=== PATIENT | female | born 1985 | race Caucasian/White ===

== ENCOUNTER → 2018-02-26 09:12 | Outpatient (CLI) | payer SELFPAY | PROVIDERS: Family Provider Family Medicine; PCP Family Medicine; Visit Provider Nurse Practitioner Adult Health | DX: N20.0 Calculus of kidney (principal) | CPT/HCPCS: 74018 ==

== ENCOUNTER 2018-03-20 11:45 | Day surgery (SDC) | payer SELFPAY ==
--- NOTE | 2018-03-20 11:30 | RAD_ITS ---
STUDY: X-RAY - ABDOMEN/PELVIS REASON FOR EXAM: Female, 33 years old. Right-sided stones, pre surgery TECHNIQUE: Two AP supine views of the abdomen and pelvis. COMPARISON: 02/26/2018 FINDINGS: Normal visualized lung bases. There is an unremarkable bowel gas pattern. There is no demonstrated free abdominal air. The visualized liver, spleen and kidneys are grossly normal in size and morphology. There is a small calcific density in the lower right pelvic region measuring 4.7 mm Normal soft tissue structures. Normal visualized osseous structures. RAD/Abdomen Single View IMPRESSION: Calcific density in the lower right pelvic region measuring 4.7 mm Electronically Signed: Sergey Marcial DO at 12:08 EDT Tel , Service support ,
[2018-03-20 12:24] LABS: Internal QC Validated? YES +Cl - CLEAR BKGD; Pregnancy, Urine Negative Negative
[2018-03-20 12:34] VITALS: BP 128/67; PULSE 115; RESP 18; TEMP 37.2; O2SAT 99; BMI 49.5
[2018-03-20] MEDS: Cefazolin 2 GM in 0.9% Normal Saline 100 ML IV (14:22)
--- NOTE | 2018-03-20 15:08 | DCINST_ITS ---
Discharge Diet: No Restrictions Discharge Activity: Return to Normal Activity, May Not Drive - for 2 days. Additional Activity Instructions:: Please be aware that pain medications may cause nausea. You should typically eat light foods as you take your pain medication. Pain medication may cause constipation, if this is a problem for you, please discuss with your doctor. Allergies/Adverse Reactions: Allergies strawberry Adverse Reaction (Verified 03/13/18 13:28) Nausea/Vom/Diarrhea Medications to take at Discharge Amoxicillin/Potassium Clav [Augmentin 875-125 Tablet] 1 each PO BID 03/13/18 Neomycin/Polymyxin B/Hydrocort [Gwyqbkno-Jddimpsjr-Gk Ear Susp] 4 drop LEFT EAR 4X/DAY 03/13/18 Primary Care Physician: Paola Ovalle PA-C [Primary Care Provider] - Test Results: Test results from this visit will be discussed in further detail at your follow- up appointment, if applicable. Please Follow Up With: Lawrence Nolasco MD When: in 2 weeks, please call to make an appointment.
--- NOTE | 2018-03-20 15:11 | OP.PCM_ITS ---
Report of Operation Date of Procedure: 03/20/18 Pre-Operative Diagnosis: Right ureteral calculi Post-Operative Diagnosis: Same Surgery/Procedure Performed:: Right extracorporeal shockwave lithotripsy Description of Surgical Findings:: 33-year-old female taken back to the operating room after smooth induction of general anesthesia she was placed supine on the table we then localize the stone in the distal ureter on the right side seen on x-ray and we could see this clearly on fluoroscopy the stone was put in the F2 focal point of the machine we then delivered 3000 shockwaves to the [place] are monitoring the stone adjusting the the the shockwaves first we went up on the power then we went down and then finally we increased the rate from 90-120 give a total of 3000 shockwaves at the end the treatment site. The stone broke up really nicely decided not to leave a stent in patient's anesthetic was reversed she is taken back to PACU good condition she will follow-up in a few weeks with an x-ray that should end of dictation on Type of Anesthesia:: General Drains: none - Admit VTE Documentation VTE Present on Admission: No VTE Mechan Device Prophylaxis: SCD's VTE Pharm Prophylaxis ordered?: No
[2018-03-20 15:13] VITALS: BP 114/69; BP 128/67; PULSE 111; RESP 16; TEMP 36.7; O2SAT 93
[2018-03-20 15:15] VITALS: BP 118/76; BP 128/67; PULSE 114; RESP 94; O2SAT 95
[2018-03-20 15:30] VITALS: BP 123/76; BP 128/67; PULSE 112; RESP 16; O2SAT 95
[2018-03-20 15:40] VITALS: BP 122/86; BP 128/67; PULSE 110; RESP 16; TEMP 36.4; O2SAT 95
[2018-03-20 16:24] VITALS: BP 128/67
== END 2018-03-20 16:25 | disposition home or self-care (01) ==
LOC: SDC 11:48 → AC 11:49
PROVIDERS: Family Provider Family Medicine; PCP Family Medicine; Visit Provider Urology
PROC: (CPT 50590; principal; 2018-03-20 13:35)
DX: N20.1 Calculus of ureter (principal)
CPT/HCPCS: 50590; 74018; 81025; J7120; J2405

== ENCOUNTER → 2018-04-09 14:40 | Outpatient (CLI) | payer SELFPAY ==
--- NOTE | 2018-04-09 14:50 | RAD_ITS ---
STUDY: X-RAY - ABDOMEN/PELVIS REASON FOR EXAM: Female, 33 years old. Follow-up right kidney stones. Surgery 03/20/2018. TECHNIQUE: AP supine view. COMPARISON: None. FINDINGS: Normal visualized lung bases. There is an unremarkable bowel gas pattern. There is no demonstrated free abdominal air. The visualized liver, spleen and kidneys are grossly normal in size and morphology. Normal soft tissue structures. Normal visualized osseous structures. RAD/Abdomen Single View IMPRESSION: 1. Normal x-ray examination of the abdomen and pelvis. 2. Interval clearing of the faint calcific density in the right side of the pelvis when compared to 03/20/2018. Electronically Signed: Johnny Bravo MD at 14:24 EDT , Service support ,
[2018-04-19 20:07] LABS: Ca Oxalate, Monohydrate 88 % (.); Calcium Phosphate 10 % (.)
== END ==
PROVIDERS: Family Provider Family Medicine; PCP Family Medicine; Referring Provider Urology; Visit Provider Urology
DX: N20.0 Calculus of kidney (principal)
CPT/HCPCS: 74018; 82360

== ENCOUNTER 2018-08-05 23:47 | Emergency (ER) | payer SELFPAY ==
[2018-08-05 23:48] VITALS: BP 157/94; PULSE 112; RESP 18; TEMP 36.4; O2SAT 97; BMI 52.2
--- NOTE | 2018-08-06 00:05 | ED.VISSUMM ---
- ER Visit Summary Date of Service: 08/06/18 Chief Complaint: [] Here for a rabies shot History of Present Illness: The patient is a 33 F it was bit by a stray cat earlier today. Happened suddenly. She got bit just proximal to her second knuckle. She washed it. She went over to [facility] and they gave her a tetanus shot and started her on Augmentin out of the emergency department. They sent her here to potentially start rabies vaccinations. She denies any complaints. Physical Examination: [] Vital signs reviewed General: Well-nourished well-developed Head: Normocephalic atraumatic Eyes: Pupils equal round and reactive to light extraocular movements intact ENT: TMs clear no hemotympanum no trauma Neck: Nontender full range of motion Cardiovascular: Regular rate rhythm no murmurs normal S1-S2 Respiratory: No distress clear to auscultation bilaterally chest nontender Abdomen: Soft nontender nondistended normal bowel sounds no masses Back: Nontender no CVA tenderness Extremities: Nontender active range of motion ?4 extremities no trauma. 1 mm superficial bite wound to the second finger just proximal to the knuckle. It is not deep. There is no swelling redness or deformity Skin: see above Neuro alert oriented cranial nerves II through XII intact normal strength sensation reflexes Test Results: [] Emergency Department Course and Treatment: [] At this time the patient was reassured. We do not need to do rabies prophylaxis for just a stray cat bite. She will continue to keep it clean use her antibiotic and Neosporin. I do not feel it needs to be opened up. This is very superficial she understands that if it starts to get red or infected she needs to return. Treatment Plan: [] Disposition: [] Impression: []cat Bite hand This note was generated with [employer] dictation software. It may contain incorrect words, spelling, and punctuation that were not noted in review of the chart prior to signing ED Disposition - Plan for ED Patient: Referrals: Paola Ovalle PA-C [Primary Care Provider] -
--- NOTE | 2018-08-06 00:07 | ED.DEP ---
ED Disposition - Plan for ED Patient: Disposition: Home or Assisted Living Instructions: ED Bite Cat Referrals: Paola Ovalle PA-C [Primary Care Provider] -
--- NOTE | 2018-08-06 00:18 | ED.RN ---
PT GIVEN WRITTEN DISCHARGE INSTRUCTIONS. PT GIVEN SHUR CLENS SOAP AND EDUCATED ON SOAKING BITE AT HOME. PT VERBALIZES UNDERSTANDING, REQUESTS TO TAKE SOAK HOME INSTEAD OF REMAINING IN ED. PT DENIES ANY FURTHER QUESTIONS. AMBULATES OUT OF DEPT WITH FAMILY. EDUCATED TO RETURN FOR NEW OR WORSENED CONDITION.
== END 2018-08-06 00:19 | disposition home or self-care (01) ==
LOC: ED 08-06 00:11
PROVIDERS: Emergency Provider Emergency Medicine; Family Provider Family Medicine; PCP Family Medicine
DX: S60.579A Other superficial bite of hand of unspecified hand, initial encounter (principal); W55.01XA Bitten by cat, initial encounter; Y93.9 Activity, unspecified; Y92.9 Unspecified place or not applicable
CPT/HCPCS: 99282

== ENCOUNTER 2020-10-29 15:48 | Emergency (ER) | payer OTHER, SELFPAY ==
[2020-10-29 15:49] VITALS: BP 145/83; PULSE 125; RESP 20; TEMP 36.8; O2SAT 96; BMI 50.3
--- NOTE | 2020-10-29 16:55 | EDS_ITS ---
HPI HPI - URI History of Present Illness Chief Complaint: Cough Informant: patient Onset/Context/Timing Onset: Days (5) Context: Gradual Onset Timing: Continuous Quality: achy, feeling poorly Location: generalized Current Severity: Moderate Maximum Severity: Moderate Worsened by: - (nothing) Associated Symptoms Associated Symptoms: Nasal Congestion, Headache, Myalgias, Nausea, Vomiting, Diarrhea, Shortness of Breath and Nonproductive cough Narrative Narrative: Patient is healthy 35-year-old female, her recently diagnosed with Covid, she lives with them and started having similar symptoms including loss of taste and smell 5 days ago. She had a virtual visit with her doctor who advised her to isolate herself as she presumably has COVID-19, and advised her t o come to the hospital if she has trouble controlling her fevers, which she has. She has been taking Tylenol and ibuprofen alternating, so she is taking something every 3 or 4 hours. She denies any dyspnea. She has some soreness in her chest from all the coughing but no angina or unilateral pleuritic internal thoracic pains. Furthermore, she has been checking her pulse oximetry at home and it has not gone below 95-96% on room air. ROS [facility] ED Constitutional Constitutional ED: Reports chills, fever(s) and malaise Eyes Eyes: Denies change in vision or diplopia ENT ENT ED: Denies rhinorrhea or sore throat Cardiovascular Cardiovascular: Denies chest pain or palpitations Respiratory/Chest Respiratory/Chest: Reports cough; Denies dyspnea, dyspnea on exertion or sputum Gastrointestinal Gastrointestinal: Reports diarrhea, nausea and vomiting; Denies abdominal pain Genitourinary Genitourinary ED: Denies dysuria or hematuria Musculoskeletal Musculoskeletal: Reports myalgias; Denies back pain or neck pain Integumentary Denies abscess or rash Neurologic Neurologic: Reports headache(s); Denies paresthesias or weakness Psychiatric Psychiatric: Denies anxiety or suicidal thoughts [facility] Medical History (Updated 10/29/20 @ 18:[address] Ronald Adhikari MD) Kidney stones Home Medications ondansetron HCl [Zofran] 8 mg PO Q8H PRN #20 tab 10/29/20 [Rx Last Taken Unknown] Allergy/AdvReac Type Severity Reaction Status Date / Time strawberry AdvReac Nausea/Vom/ Verified 10/29/20 15:52 Diarrhea Social History Smoking Status: Never smoker EXAM Physical Exam Const Vital Signs: 10/29/20 15:49 10/29/20 17:26 Temperature 98.2 F Temperature Source Temporal Pulse Rate 125 H Respiratory Rate 20 H Respiratory Effort Normal Non-Labored Respiratory Depth Normal Respiratory Pattern Normal Blood Pressure 145/83 H Blood Pressure Mean 103 Pulse Ox 96 Oxygen Delivery Method Room Air Room Air Positive well nourished, well developed and obese General Appearance ED: well developed and NAD Nutritional Appearance: obese HEENT Reports moist mucous membranes normocephalic and atraumatic Eyes PERRL and EOMs intact bilaterally Neck full ROM and supple Resp normal respiratory effort and clear to auscultation bilaterally Cardio regular rate, regular rhythm and no murmurs GI non-tender and non-distended Auscultation: normoactive bowel sounds Palpation: soft Back/Spine no CVA tenderness General Back: other FROM Extremity normal to inspection General Extremety ED: Negative for edema, pulses abnormal or tenderness General Extremity: Negative for edema or pulses abnormal Neuro oriented x3, CN's II-XII intact bilaterally and no sensory deficits noted Sensorium / Orientation: awake and alert Motor Exam: strength 5/5 throughout Skin no rashes or lesions noted and no wounds MDM MDM MDM Narrative Medical decision making narrative: Rapid Covid is positive, confirming that she does indeed have COVID-19. Her vital signs are stable, her tachycardia improved with a liter of IV fluids and she was also given Zofran and Toradol which helped. She is stable for discharge home and currently meets no criteria for admission. Given her BMI only, she is a potential candidate for monoclonal anti body infusion. She is discharged home with a prescription for Zofran and referred to the outpatient referral line for the monoclonal antibody infusion. Discharge Plan Triage Chief Complaint: Cough ED Provider: Ronald Adhikari Dx/Rx/DC Orders Clinical Impression: COVID-19 Instructions: Coronavirus Disease 2019 (COVID-19): Overview Prescriptions: New ondansetron HCl [Zofran] 4 mg tablet 8 mg PO Q8H PRN (Reason: nausea and vomiting) Qty: 20 RF: 0 Primary Care Provider: Paola Ovalle Referrals: Paola Ovalle PA-C [Primary Care Provider] - Activity Restrictions/Additional Instructions: You have been referred to the monoclonal antibody infusion line. You will get a call if you are a candidate for this. Continue to watch her pulse oximetry. If you drop below 90% return to the hospital. Disposition Disposition: Home, self care
[2020-10-29] MEDS: 0.9% Normal Saline 1,000 ML 999 ML IV (17:20)
[2020-10-29] MEDS: Ondansetron 4 MG/2 ML Vial IV (17:20)
[2020-10-29] MEDS: Ketorolac 15 MG/ML Vial IV (17:20)
[2020-10-29 17:26] VITALS: O2SAT 98
[2020-10-29 18:59] VITALS: BP 133/71; PULSE 100; RESP 19; O2SAT 99
== END 2020-10-29 19:00 | disposition home or self-care (01) ==
PROVIDERS: Emergency Provider Emergency Medicine; PCP Family Medicine
DX: U07.1 COVID-19 (principal); E66.9 Obesity, unspecified; Z68.43 Body mass index [BMI] 50.0-59.9, adult
CPT/HCPCS: 87426; 96361; 96374; 96375; 99283; J7030; J2405

== ENCOUNTER 2024-05-23 13:21 | Day surgery (SDC) | payer OTHER, SELFPAY ==
[2024-05-23] VITALS (9 sets, daily range): BP systolic 141–154; BP diastolic 96–106; PULSE 90–106; RESP 15–16; TEMP 36.2–37; O2SAT 91–99; BMI 48.4
--- NOTE | 2024-05-23 13:33 | PRE.ANES_ITS ---
ASA Classification* ASA Classification ASA Classification: 2 Assessment & Plan Anesthesia* Anesthesia Assessment Anesthesia Assessment: Discussed sedation and/or anesthesia options, risks, benefits, and alternatives with patient/parents/legal guardian/POA. Questions invited. The patient/parents/legal guardian/POA seems to understand and agrees to proceed with anesthesia plan. Reviewed the physical assessment, medical history, allergy history and patient home medications list prior to surgery/procedure/anesthetic and documented any changes. Performed airway and anesthesia risk assessments. 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 When Was Last Pacemaker Check QUESTION #4 FULL TEXT: You/Your Family Experience fever (hyperthermia) with Anesthesia Last Oral Intake Last Oral intake: Last Oral Intake NPO since Meds taken in AM with sips of water? Meds patient instructed to take am of surgery PONV PONV - statistical financial analyst: PONV - statistical financial analyst Female Yes 05/21/24 08:33 HX of Motion Sickness Yes 05/21/24 08:33 HX of N/V After Surgery No 05/21/24 08:33 Non-Smoker Yes 05/21/24 08:33 Duration of Surgery greater Yes 05/21/24 08:33 than 60 minutes Number of Risk Factors 4 05/21/24 08:33 PONV Score Severe Risk 05/21/24 08:33 Height & Weight Height & Weight: Anesthesia: Height & Weight Height 5 ft 2 in 10/29/20 15:49 Respiratory Assessment Respiratory Assessment - statistical financial analyst: Respiratory Tract Infection Hx - statistical financial analyst Hx Respiratory Tract Infection No 05/21/24 08:33 STOP Sleep Apnea STOP Sleep Apnea - statistical financial analyst: STOP Sleep Apnea - statistical financial analyst Hx Hypertension No 05/21/24 08:33 Hx Sleep Apnea No 05/21/24 08:33 CPAP BIPAP Do you snore loudly (louder Yes 05/21/24 08:33 than talking or can be heard Do you often feel tired/ No 05/21/24 08:33 fatigued/ sleepy during daytime? Has anyone observed you stop No 05/21/24 08:33 breathing during sleep? STOP Results Negative 05/21/24 08:33 QUESTION #5 FULL TEXT : Do you snore loudly (louder than talking or can be heard through closed doors)? 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 Specify any problems Hx of Preganancy in last 3 No 05/21/24 08:33 Months Nurse Filling Out Transfusion DSCHRIBER 05/21/24 08:33 & Questions: Date: 05/21/24 05/21/24 08:33 Time: 08:34 05/21/24 08:33 Patient unable to answer at this time (ie. confused, unrespo /Reproduction History /Reproductive History - statistical financial analyst: /Reproductive Hx- statistical financial analyst Hx Now No 05/21/24 08:33 Gestational Age (in weeks): EDC: Hx Hx Para Hx Section SAB No 05/21/24 08:33 Active Medications Active Medications: Current Medications Generic Name Dose Route Start Last Admin Trade Name Freq PRN Reason Stop Dose Admin Cefazolin Sodium 2 gm/ N/A 20 mls @ 400 mls/hr 05/23/24 15:30 IV 05/23/24 15:32 PREOP ONE Lactated Ringer's 1,000 mls @ 15 mls/hr 05/23/24 13:30 IV 05/29/24 02:49 .Q48H [facility] Protocol PFSH Medical History Wears contact lenses Alcohol use Low iron Migraine headache Non-smoker Home Medications ?Medication ?Instructions ?Recorded ?Last Taken ?Type ondansetron HCl 4 mg tablet 8 mg (2 x 4 mg) PO Q8H PRN nausea 10/29/20 Unknown Rx (Zofran) and vomiting #20 tabs fluconazole 200 mg tablet 200 mg PO DAILY 05/21/24 Unknown History oxycodone-acetaminophen 5 mg-325 1 tab PO Q6H PRN PRN pain 05/21/24 Unknown History mg tablet sulfamethoxazole 800 1 tab PO BID 05/21/24 Unknown History mg-trimethoprim 160 mg tablet tamsulosin 0.4 mg capsule 0.4 mg PO QHS 05/21/24 Unknown History Allergy/AdvReac Type Severity Reaction Status Date / Time strawberry AdvReac Nausea/Vom/ Verified 05/21/24 08:30 Diarrhea Surgical History Hx of cystoscopy Social History Smoking Status: Never smoker Review of Systems (Anesthesia) ROS Narrative System reviewed and no additional complaints, except as documented.
--- NOTE | 2024-05-23 13:35 | RAD_ITS ---
STUDY: X-RAY - ABDOMEN/PELVIS REASON FOR EXAM: Female, 39 years old. RIGHT KIDNEY STONE TECHNIQUE: Single AP view of the abdomen / pelvis. COMPARISON: April 09, 2018 FINDINGS: Normal visualized lung bases. There is an unremarkable bowel gas pattern. Increased stool in the colon. Possible new 3 mm radiodensity to the right of L3. The visualized liver, spleen and kidneys are grossly normal in size and morphology. Normal soft tissue structures. Normal visualized osseous structures. RAD/Abdomen Single View IMPRESSION: Increased stool. Possible new 3 to 4 mm right mid ureterolith. Electronically Signed: Chidi Grover MD at 14:20 EST ,
[2024-05-23 14:05] LABS: Internal QC Validated? YES +Cl - CLEAR BKGD
[2024-05-23 14:06] LABS: Pregnancy, Urine Negative Negative
[2024-05-23] MEDS: Lactated Ringers 1,000 ML 15 ML IV (14:09)
--- NOTE | 2024-05-23 15:28 | PCM.HP.STD ---
HPI - General General Date of Service: 05/23/24 Chief Complaint: Right kidney stone HPI Narrative KILLIANBORA ROLDAN, is a 39 F who presents for treatment of a right kidney stone with shockwave lithotripsy patient is send it is possible I may need to put a stent on the right side. PFSH Medical History Wears contact lenses Alcohol use Low iron Migraine headache Non-smoker Home Medications ?Medication ?Instructions ?Recorded ?Last Taken ?Type ondansetron HCl 4 mg tablet 8 mg (2 x 4 mg) PO Q8H PRN nausea 10/29/20 Unknown Rx (Zofran) and vomiting #20 tabs fluconazole 200 mg tablet 200 mg PO DAILY 05/21/24 05/22/24 History oxycodone-acetaminophen 5 mg-325 1 tab PO Q6H PRN PRN pain 05/21/24 05/22/24 History mg tablet sulfamethoxazole 800 1 tab PO BID 05/21/24 05/22/24 History mg-trimethoprim 160 mg tablet tamsulosin 0.4 mg capsule 0.4 mg PO QHS 05/21/24 05/22/24 History Allergy/AdvReac Type Severity Reaction Status Date / Time strawberry AdvReac Nausea/Vom/ Verified 05/23/24 14:05 Diarrhea Surgical History Hx of cystoscopy Social History Smoking Status: Never smoker Vital Signs Vital Signs Vital Signs: 05/23/24 14:06 05/23/24 14:06 Temperature 98.6 F Temperature Source Temporal Pulse Rate 104 H Respiratory Rate 16 Respiratory Pattern Normal Blood Pressure 154/96 H Blood Pressure Mean 115 Blood Pressure Source Monitor Blood Pressure Position Semi-Fowlers Blood Pressure Location Right Arm Pulse Ox 99 Oxygen Delivery Method Room Air Weight Weight: 120 kg Body Mass Index (BMI) 48.4 Results Lab / Micro Data Labs: Laboratory Results - last 24 hr 05/23/24 13:50: Urine Test Negative Imaging Radiology Impression KUB X-Ray 05/23/24 13:35 IMPRESSION: Increased stool. Possible new 3 to 4 mm right mid ureterolith. Electronically Signed: Chidi Grover MD at 14:20 EST ,
[2024-05-23] MEDS: Cefazolin 2 GM in Syringe IV (15:55)
--- NOTE | 2024-05-23 16:01 | DCINST_ITS ---
Discharge Instructions Diet Discharge Diet: No restrictions, Light diet - advance as tolerated and Soft diet DC O2, CPAP, BIPAP needs Additional Home O2 Discharge instructions: No Dressing / Incision Discharge Activity: Return to Normal Activity Follow Up Care Please Follow Up With: Lawrence Nolasco MD When: 2 weeks with KUB Test Results: Test results from this visit will be discussed in further detail at your follow- up appointment, if applicable. Discharge Plan Admission Primary Reason for Your Visit: michael LAGUERRE Attending Provider: Lawrence Nolasco Primary Care Provider: Paola Ovalle Instructions Print Language: Georgian Discharge Orders/Prescriptions Prescriptions: New oxycodone 5 mg tablet 5 mg PO Q6H PRN (Reason: pain) 3 Days Qty: 14 0RF docusate sodium [Colace] 100 mg capsule 100 mg PO BID Qty: 20 0RF ciprofloxacin HCl [Cipro] 500 mg tablet 500 mg PO BID Qty: 10 0RF Continued ondansetron HCl [Zofran] 4 mg tablet 8 mg PO Q8H PRN (Reason: nausea and vomiting) Qty: 20 0RF fluconazole 200 mg tablet 200 mg PO DAILY sulfamethoxazole-trimethoprim 800-160 mg tablet 1 tab PO BID oxycodone-acetaminophen 5-325 mg tablet 1 tab PO Q6H PRN PRN (Reason: pain) tamsulosin 0.4 mg capsule 0.4 mg PO QHS Referrals / Follow Up: Lawrence Nolasco MD [Med Staff - Active Staff] - Paola Ovalle, LEAH-C [Primary Care Provider] - Disposition Disposition (needs filled in before D/C Order can be placed): Home, Self Care
--- NOTE | 2024-05-23 16:54 | PCM.OPRPT ---
Operative Report (Standard) Operative Information Surgery/Procedure Performed: Right ESWL Surgeon: Lawrence Nolasco Date of Procedure: 05/23/24 Procedure Start Time: 16:05 Procedure Stop Time: 16:54 Pre-Operative Diagnosis: right ureteral calculi Post-Operative Diagnosis: same Select all DRAINS/GRAFTS/IMPLANTS that apply: None Type of Anesthesia: General Estimated Blood Loss: none Specimen collected: No Description of surgery: Patient presents to the hospital for treatment of a kidney stone with shockwave lithotripsy. In the preoperative area and x-ray was done to confirm the location of the stone. The x-ray was reviewed and the stone location was reviewed. In the preoperative setting I spoke with the patient regarding the treatment of the stone how the treatment would be conducted and the expectations after surgery. The patient understands there is a risk of bleeding and infection. Also discussed the very rare risk of hematoma or damage to the kidney. We also discussed the risk that the shockwave machine will fail to break the stone adequately and that the patient may need other surgical procedures. I also discussed the possibility that the patient may need a stent after the procedure. After reviewing the procedure with the patient, the patient is signed the consent form all the patient's questions were addressed and was taken back to the operating room for treatment of a kidney stone. Patient was taken back to the operating room, the patient was identified by the nursing staff, I identified the side of the treatment and the patient side of treatment had been marked by my initials. The patient underwent general anesthetic and was placed supine on the lithotripter table. I then used fluoroscopy to identify the stone on the right mid ureter. I then positioned the patient under the lithotripter and I used triangulation technique to identify the location of the stone and then I made sure that the stone was engaged in the F2 focal point of F2 Donier lithoprior machine. Once the patient was positioned appropriately and the stone was identified and placed in the F2 focal point of the lithotripter machine I then proceeded with shockwave lithotripsy. In the beginning the shockwave was delivered at a rate of 90 shocks per minute, anesthesia monitored the EKG for any ectopy. The power was slowly increased to 5 kV and subsequently at the 9 kV. I then proceeded with the treatment with shock wave therapy and around during the treatment to make sure the stone stayed in the F2 focal point during the entire treatment and after 4000 shockwaves were delivered to the stone under fluoroscopic guidance the treatment was completed. The patient was given instructions to call the office to make an a follow-up appointment with an xray to evaluate the success of the treatment, pateint understands that its possible the stones may need another procedure.At this point the patient's anesthetic was reversed patient was extubated and taken back to the PACU in stable condition. Surgical Findings: stone in right ureter 4000 shockwaver significant breakage but stone still visible on xray Sight Mounter soiled linen distributor: No Complications Complications: No Admit VTE Documentation VTE Present on Admission: No VTE Mechan Device Prophylaxis: SCD's VTE Pharm Prophylaxis ordered?: No
--- NOTE | 2024-05-23 17:00 | PCM.POST.ANE ---
Anesthesia: Postop Eval I Current Vital Signs Temperature: 97.1 F Pulse Rate: 103 Blood Pressure: 147/106 Respiratory Rate: 16 Pulse Ox: 99 Oxygen Delivery Method: Room Air Assessment Airway patent: Yes Spontaneous unlabored respirations: Yes Mental status: Awake and Calm nausea: No Vomiting: No Anesthesia Complication: No Fluid Hydration Crystalloid volume administer (ml): 200 Total IV fluid infused: 200 Progress Note Anesthesia document: Postop Eval 1 completed: Yes
--- NOTE | 2024-05-23 17:01 | POSTOPAN2_ITS ---
Anesthesia Postop Eval I Sum Postop Eval Completion status Anesthesia document: Postop Eval 1 completed: Yes Anesthesia Postop Eval I Summary Anesthesia Postop Eval I Summary: Anesthesia Postop Eval I: Assessment Summary Airway patent Yes 05/23/24 17:01 SOFTWARE DEVELOPMENT COORDINATOR.[email or web address] Spontaneous unlabored Yes 05/23/24 17:01 SOFTWARE DEVELOPMENT COORDINATOR.OT respirations Mental status Awake,Calm 05/23/24 17:01 SOFTWARE DEVELOPMENT COORDINATOR.MDOT nausea No 05/23/24 17:01 SOFTWARE DEVELOPMENT COORDINATOR.MDOT Vomiting No 05/23/24 17:01 SOFTWARE DEVELOPMENT COORDINATOR.[email or web address] Anesthesia Postop Eval I: Fluid Summary Crystalloid volume administer 200 05/23/24 17:01 SOFTWARE DEVELOPMENT COORDINATOR.MDOT (ml) Colloids volume administered ( ml) Blood Product volume administered (ml) Total IV fluid infused 200 05/23/24 17:01 SOFTWARE DEVELOPMENT COORDINATOR.GLADYS Anesthesia Postop Eval I: Summary Notes Anesthesia Complication No 05/23/24 17:01 SOFTWARE DEVELOPMENT COORDINATOR.OT Anesthesia Complication Comment: Post-operative progress note Anesthesia: Postop Eval II Evaluation Mental status: Awake and Calm Pain Level: 0 nausea: No Vomiting: No Complications Anesthesia Complication: No
--- NOTE | 2024-05-23 17:01 | PCM.POSTANE2 ---
Anesthesia Postop Eval I Sum Postop Eval Completion status Anesthesia document: Postop Eval 1 completed: Yes Anesthesia Postop Eval I Summary Anesthesia Postop Eval I Summary: Anesthesia Postop Eval I: Assessment Summary Airway patent Yes 05/23/24 17:01 PLASTIC DOLLS MOLD [email or web address].[email or web address] Spontaneous unlabored Yes 05/23/24 17:01 PLASTIC DOLLS MOLD FILLER.OT respirations Mental status Awake,Calm 05/23/24 17:01 PLASTIC DOLLS MOLD FILLER.MDOT nausea No 05/23/24 17:01 PLASTIC DOLLS MOLD FILLER.MDOT Vomiting No 05/23/24 17:01 PLASTIC DOLLS MOLD [email or web address].[email or web address] Anesthesia Postop Eval I: Fluid Summary Crystalloid volume administer 200 05/23/24 17:01 PLASTIC DOLLS MOLD FILLER.MDOT (ml) Colloids volume administered ( ml) Blood Product volume administered (ml) Total IV fluid infused 200 05/23/24 17:01 PLASTIC DOLLS MOLD [email or web address].[email or web address] Anesthesia Postop Eval I: Summary Notes Anesthesia Complication No 05/23/24 17:01 PLASTIC DOLLS MOLD [email or web address].OT Anesthesia Complication Comment: Post-operative progress note Anesthesia: Postop Eval II Evaluation Mental status: Awake and Calm Pain Level: 0 nausea: No Vomiting: No Complications Anesthesia Complication: No
[2024-05-23] MEDS: Ketorolac 15 MG/ML Vial IV (17:58)
== END 2024-05-23 18:14 | disposition home or self-care (01) ==
LOC: SDC 13:26 → AC 13:26
PROVIDERS: Anesthesiology; PCP Family Medicine; Referring Provider Urology; Visit Provider Urology
PROC: (CPT 50590; principal; 2024-05-23 15:20)
DX: N20.2 Calculus of kidney with calculus of ureter (principal)
CPT/HCPCS: 50590; 00873; 74018; 81025; J2405